=== PATIENT | female | born 1980 | race Caucasian/White ===

== ENCOUNTER 2022-11-24 08:35 | Emergency (ER) | payer OTHER ==
[2022-11-24 08:59] VITALS: TEMP 97.7
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
[2022-11-24] MEDS ORDERED: Adacel Vial IM ONE ×2 (09:13→09:43)
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
[2022-11-24 09:57] LABS: Absolute Neutrophil Ct (ANC) 6.59 x10^3/uL (1.4-6.9); BASOPHIL % 0.9 % (0.0-0.4); Basophil (Absolute #) 0.07 x10^3/uL (0-0.4); Eosinophil % 0.7 % (0.00-5.0); Eosinophil (Absolute #) 0.06 x10^3/uL (0-0.5); Hematocrit 34.6 % (35-47); Hemoglobin 10.1 g/dL (12.0-16.0); IMMATURE GRAN # 0.03 x10^3u/L (0.00-0.03); IMMATURE GRAN % 0.4 % (0.00-0.4); Lymphocyte (Absolute #) 0.99 x10^3/uL (1.0-4.6); Lymphocytes % 12.2 % (24.0-44.0); Mean Cell Volume 79.9 fL (78-100); Mean Corpuscular Hemoglobin 23.3 pg (26-32); Mean Corpuscular Hgb Concent. 29.2 g/dL (32-36); Mean Platelet Volume 9.1 fL (7.5-11.0); Monocyte (Absolute #) 0.37 x10^3/uL (0.0-1.3); Monocytes % 4.6 % (0.0-12.0); Neutrophil % 81.2 % (36.0-66.0); Platelet Count 391 x10^3/uL (150-450); Red Blood Count 4.33 x10^6/uL (4.1-5.4); Red Cell Distribution Width 15.6 % (11.5-14.0); White Blood Count 8.1 x10^3/uL (4.0-10.5)
[2022-11-24 10:22] LABS: ALBUMIN 4.6 g/dL (3.5-5.0); ALKALINE PHOSPHATASE 77 U/L (38-126); ANION GAP 14.2 MEQ/L (5-15); BLOOD UREA NITROGEN 9 mg/dL (7-17); CHLORIDE 107 mmol/L (98-107); Carbon Dioxide 23 mmol/L (22-30); Creatinine 1 0.62 mg/dL (0.52-1.04); EST GLOMERULAR FILTRATION RATE > 60.0 ML/MIN; Glucose 84 mg/dL (74-106); Potassium 4.1 mmol/L (3.5-5.1); SGOT/AST 24 U/L (14-36); SODIUM 140 mmol/L (137-145)
[2022-11-24 10:23] LABS: Calcium 8.9 mg/dL (8.4-10.2); SGPT/ALT 19 U/L (0-35)
[2022-11-24 10:40] VITALS: PULSE 71
[2022-11-24 10:47] LABS: Appearance Clear (Clear); Bacteria None Seen /HPF (None Seen); Bilirubin Negative (Negative); Blood Negative (Negative); Epithelial Cells None Seen /HPF (None Seen); Glucose, Urine Negative (Negative); Hyaline Casts NONE SEEN /LPF (0-2); Ketones Negative (Negative); Leukocyte Esterase Negative (Negative); Nitrite Negative (Negative); Protein,Urine Dip Negative (Negative); RBC 0-2 /HPF (0-5); Urobilinogen 0.2 mg/dL (0.2); WBC 0-2 /HPF (0-5)
[2022-11-24 10:51] LABS: ADD URINE CULTURE? NO (NO)
[2022-11-24 11:06] LABS: Amphetamine,Urine NEGATIVE (NEGATIVE); Barbiturate,Urine NEGATIVE (NEGATIVE); Benzodiazepine,Urine NEGATIVE (NEGATIVE); Cocaine,Urine NEGATIVE (NEGATIVE); Methadone,Urine NEGATIVE (NEGATIVE); Opiate,Urine NEGATIVE (NEGATIVE); PCP,Urine NEGATIVE (NEGATIVE); THC,Urine NEGATIVE (NEGATIVE)
[2022-11-24 11:18] VITALS: O2SAT 99
[2022-11-24 11:28] VITALS: BP 127/93; RESP 19
== END 2022-11-24 11:38 | disposition home or self-care (01) ==
LOC: ED 08:35
DX: S00.91XA Abrasion of unspecified part of head, initial encounter (principal); S50.312A Abrasion of left elbow, initial encounter; S50.311A Abrasion of right elbow, initial encounter; S50.812A Abrasion of left forearm, initial encounter; S50.811A Abrasion of right forearm, initial encounter; V47.0XXA Car driver injured in collision with fixed or stationary object in nontraffic accident, initial encounter; M54.6 Pain in thoracic spine; M25.561 Pain in right knee
CPT/HCPCS: 36000; 36415; 70450; 72125; 72128; 73562; 80053; 80307; 81001; 82077; 84484; 85025; 90471; 90715; 93005; 99285

== ENCOUNTER 2024-12-05 11:52 | Day surgery (SDC) | payer OTHER ==
[2024-12-05] MEDS ORDERED: Sodium Chloride 0.9(Preservative Free) 10 ML IJ ONE (11:53)
[2024-12-05 12:06] LABS: HCG URINE TEST NEGATIVE (NEGATIVE)
[2024-12-05] MEDS ORDERED: propofoL IV ONE (13:51)
--- NOTE | 2024-12-05 16:52 | XRAY ---
Indication: Left L4-S1 transforaminal BTEI. Intraoperative fluoroscopy provided for 25 seconds. 4 digital spot image submitted for interpretation demonstrates posterior needle tips projecting over expected left L4 and L5 nerve roots. Small amount of contrast injected for needle tip placement. Correlate with intraoperative findings/report.
[2024-12-05] MEDS ORDERED: Lactated Ringers 1,000 ML IV ONE (17:52)
--- NOTE | 2024-12-05 19:13 | XRAY ---
25 seconds of fluoroscopy were used in surgery for a left L4-S1 transforaminal BETI.
== END 2024-12-05 14:25 | disposition home or self-care (01) ==
LOC: SDC-PAIN 11:52
PROVIDERS: ATTEND Psychiatry & Neurology Pain Medicine
DX: M54.16 Radiculopathy, lumbar region (principal)